=== PATIENT | female | born 1985 | race African-American/Black ===

== ENCOUNTER 2017-01-25 05:26 | Emergency (ER) | payer OTHER ==
[~2017-01-25] VITALS: Ht 154.9 cm; Wt 146.2 kg
[~2017-01-25 05:26] MED LIST: AMOXICILLIN500 MG PO; LIDOCAINE22 EX; NAPROSYN500 MG PO; NO HOME MEDS; NO MEDS; ROBITUSSIN200 MG/10 PO; SOME ANTIBIOTIC; ULTRAM50 M1 PO; ULTRAM50 MG OR
[2017-01-25] MEDS ORDERED: AMOXICILLIN500 MG PO (06:14)
[2017-01-25 06:25] VITALS: BP 132/70
== END 2017-01-25 06:28 | disposition home or self-care (01) | DRG 153 ==
LOC: ED 05:26
DX: J02.0 Streptococcal pharyngitis (principal); F17.210 Nicotine dependence, cigarettes, uncomplicated

== ENCOUNTER 2018-05-11 06:20 | Emergency (ER) | payer OTHER ==
[~2018-05-11] VITALS: Ht 154.9 cm; Wt 146.4 kg
[2018-05-11 07:50] LABS: URINE BILIRUBIN - DIPSTICK NEGATIVE (NEGATIVE); URINE BLOOD DIPSTICK NEGATIVE (NEGATIVE); URINE COLOR YELLOW; URINE GLUCOSE - DIPSTICK NEGATIVE (NEGATIVE); URINE KETONE NEGATIVE (NEGATIVE); URINE LEUK ESTERASE NEGATIVE (NEGATIVE); URINE NITRITE - DIPSTICK NEGATIVE (Negative); URINE PROTEIN - DIPSTICK NEGATIVE (NEG-TRACE); URINE SPECIFIC GRAVITY >=1.030; URINE UROBILINOGEN - DIPSTICK 0.2 E.U./dL (0.2)
[2018-05-11 07:51] LABS: URINE CLARITY CLEAR
[2018-05-11 07:52] LABS: HCG SERUM/URINE (NEG/POS) NEGATIVE (NEGATIVE)
[2018-05-11 07:54] LABS: HEMOGLOBIN 10.9 g/dl (12.0-16.0); IMMATURE GRANULOCYTES 0.8 % (0.0-5.0); MEAN CELL VOLUME 83.5 fL CALC (80.0-100.0); MEAN CORPUSCULAR HGB 24.6 pG CALC (26.0-32.0); MEAN CORPUSCULAR HGB CONC 29.5 g/L CALC (32.0-36.0); NEUT# 3.53 thou/uL (2.00-7.15); RED BLOOD COUNT 4.43 mill/uL (4.20-5.60)
[2018-05-11 08:13] LABS: ALBUMIN 3.8 g/dL (3.2-5.0); ALKALINE PHOSPHATASE 93 u/l (38-126); ANION GAP 11 (6-22 (CALC)); BILIRUBIN, TOTAL 0.2 mg/dL (0.0-1.4); BUN 12 mg/dL (7-17); BUN/CREATININE RATIO 19 (12-20 (CALC)); CARBON DIOXIDE 29 mmol/l (22-30); CHLORIDE 107 mmol/l (95-108); CREATININE 0.6 mg/dL (0.5-1.0); GFR > 60 ML/MIN (>=60 (CALC)); GFR FOR AFR.AMER. > 60 ML/MIN (>=60 (CALC)); POTASSIUM 4.2 mmol/l (3.5-5.1); SGOT/AST 19 u/l (14-36); SODIUM 142 mmol/l (137-146); TOTAL PROTEIN 7.1 g/dL (6.3-8.2)
[2018-05-11] MEDS ORDERED: COMBIVIR 1501 COMBO PO ×2 (08:13→08:33)
[2018-05-11] MEDS ORDERED: CRIXIVAN400 MG PO ×2 (08:13→08:33)
[2018-05-11 08:42] VITALS: BP 129/75
== END 2018-05-11 08:50 | disposition home or self-care (01) | DRG 605 ==
LOC: ED 06:20
PROVIDERS: Emergency Medicine
DX: S61.031A Puncture wound without foreign body of right thumb without damage to nail, initial encounter (principal); Y35.491A Legal intervention involving other sharp objects, law enforcement official injured, initial encounter; Y93.89 Activity, other specified; Y92.89 Other specified places as the place of occurrence of the external cause; Y99.0 Civilian activity done for income or pay

== ENCOUNTER 2019-04-02 08:51 | Emergency (ER) | payer BC ==
[~2019-04-02] VITALS: Ht 154.9 cm; Wt 147.8 kg
[~2019-04-02 08:51] MED LIST changes: +COMBIVIR 1501 COMBO PO; +CRIXIVAN400 MG PO
[2019-04-02] MEDS ORDERED: ZPAK PO (09:09)
[2019-04-02 09:35] VITALS: BP 160/97
== END 2019-04-02 09:42 | disposition home or self-care (01) | DRG 153 ==
LOC: ED 08:51
DX: J06.9 Acute upper respiratory infection, unspecified (principal); F17.210 Nicotine dependence, cigarettes, uncomplicated

== ENCOUNTER 2019-09-19 | Emergency (ER) | payer BC ==
[~2019-09-19] MED LIST changes: +ZPAK PO
[2019-09-19] MEDS ORDERED: ZPAK PO (08:29)
== END 2019-09-19 08:45 | disposition home or self-care (01) | DRG 153 ==
DX: J06.9 Acute upper respiratory infection, unspecified (principal); F17.210 Nicotine dependence, cigarettes, uncomplicated

== ENCOUNTER 2019-12-28 08:42 | Emergency (ER) | payer BC ==
[2019-12-28 09:05] VITALS: BP 177/90
[2019-12-28] MEDS ORDERED: COMBIVIR 1501 COMBO PO ×2 (12:46)
[2019-12-28] MEDS ORDERED: ISENTRESS400 MG PO ×2 (12:46)
[2019-12-28] MEDS ORDERED: ONDANSETRON4 MG PO ×2 (12:48)
== END 2019-12-28 09:28 | disposition left against medical advice (07) | DRG 951 ==
LOC: ED 08:42 → LWOBS 09:22
DX: Z91.19 Patient's noncompliance with other medical treatment and regimen (principal)

== ENCOUNTER 2019-12-28 10:19 | Emergency (ER) | payer OTHER, BC ==
[2019-12-28 11:02] LABS: HEMATOCRIT 35.7 % (37.0-47.0); HEMOGLOBIN 10.5 g/dl (12.0-16.0); IMMATURE GRANULOCYTES 0.5 % (0.0-5.0); MEAN CELL VOLUME 78.5 fL CALC (80.0-100.0); MEAN CORPUSCULAR HGB 23.1 pG CALC (26.0-32.0); MEAN CORPUSCULAR HGB CONC 29.4 g/dL CAL (32.0-36.0); NEUT# 5.03 thou/uL (2.00-7.15); RED BLOOD COUNT 4.55 mill/uL (4.20-5.60); RED CELL DISTRI WIDTH 18.5 % (11.5-15.5)
[2019-12-28 11:26] LABS: ALBUMIN 3.9 g/dL (3.2-5.0); ALKALINE PHOSPHATASE 69 u/l (38-126); ANION GAP 10 (6-22 (CALC)); BILIRUBIN, TOTAL 0.3 mg/dL (0.0-1.4); BUN 11 mg/dL (7-17); BUN/CREATININE RATIO 20 (12-20 (CALC)); CARBON DIOXIDE 24 mmol/l (22-30); CHLORIDE 105 mmol/l (95-108); CPK 91 u/l (30-165); CREATININE 0.5 mg/dL (0.5-1.0); GFR > 60 ML/MIN (>=60 (CALC)); GFR FOR AFR.AMER. > 60 ML/MIN (>=60 (CALC)); POTASSIUM 3.6 mmol/l (3.5-5.1); SGOT/AST 20 u/l (14-36); SODIUM 135 mmol/l (137-146); TOTAL PROTEIN 7.2 g/dL (6.3-8.2)
[2019-12-28] MEDS ORDERED: COMBIVIR 1501 COMBO PO ×2 (12:46)
[2019-12-28] MEDS ORDERED: ISENTRESS400 MG PO ×2 (12:46)
[2019-12-28] MEDS ORDERED: ONDANSETRON4 MG PO ×2 (12:48)
[2019-12-28 13:18] VITALS: BP 173/88
== END 2019-12-28 13:18 | disposition home or self-care (01) | DRG 951 ==
LOC: ED 10:19
PROVIDERS: Family Medicine
DX: Z77.21 Contact with and (suspected) exposure to potentially hazardous body fluids (principal); F17.210 Nicotine dependence, cigarettes, uncomplicated; Y93.F9 Activity, other caregiving; Y92.149 Unspecified place in prison as the place of occurrence of the external cause; Y99.0 Civilian activity done for income or pay

== ENCOUNTER 2020-02-22 18:19 | Emergency (ER) | payer BC ==
[~2020-02-22] VITALS: Ht 154.9 cm; Wt 154.0 kg
[~2020-02-22 18:19] MED LIST changes: +ISENTRESS400 MG PO; +ONDANSETRON4 MG PO
[2020-02-22 20:19] LABS: HEMATOCRIT 40.1 % (37.0-47.0); HEMOGLOBIN 11.4 g/dl (12.0-16.0); IMMATURE GRANULOCYTES 0.6 % (0.0-5.0); MEAN CELL VOLUME 80.2 fL CALC (80.0-100.0); MEAN CORPUSCULAR HGB 22.8 pG CALC (26.0-32.0); MEAN CORPUSCULAR HGB CONC 28.4 g/dL CAL (32.0-36.0); RED CELL DISTRI WIDTH 18.6 % (11.5-15.5)
[2020-02-22 20:21] LABS: URINE BILIRUBIN - DIPSTICK NEGATIVE (NEGATIVE); URINE BLOOD DIPSTICK NEGATIVE (NEGATIVE); URINE COLOR YELLOW; URINE GLUCOSE - DIPSTICK NEGATIVE (NEGATIVE); URINE KETONE NEGATIVE (NEGATIVE); URINE LEUK ESTERASE NEGATIVE (NEGATIVE); URINE NITRITE - DIPSTICK NEGATIVE (Negative); URINE PH 8.5 (4.5-8.0); URINE PROTEIN - DIPSTICK NEGATIVE (NEG-TRACE)
[2020-02-22 20:32] LABS: ALBUMIN 4.2 g/dL (3.2-5.0); ALKALINE PHOSPHATASE 83 u/l (38-126); AMYLASE 54 u/l (30-110); ANION GAP 9 (6-22 (CALC)); BILIRUBIN, TOTAL 0.3 mg/dL (0.0-1.4); BUN 11 mg/dL (7-17); BUN/CREATININE RATIO 17 (12-20 (CALC)); CHLORIDE 101 mmol/l (95-108); CREATININE 0.6 mg/dL (0.5-1.0); GFR > 60 ML/MIN (>=60 (CALC)); GFR FOR AFR.AMER. > 60 ML/MIN (>=60 (CALC)); LIPASE 54 u/l (23-300); POTASSIUM 3.8 mmol/l (3.5-5.1); SGOT/AST 23 u/l (14-36); SODIUM 135 mmol/l (137-146); TOTAL PROTEIN 7.7 g/dL (6.3-8.2)
[2020-02-22 20:34] LABS: CARBON DIOXIDE 29 mmol/l (22-30)
[2020-02-22 23:51] VITALS: BP 158/79
== END 2020-02-23 00:42 | disposition home or self-care (01) | DRG 392 ==
LOC: ED 18:19
PROVIDERS: Emergency Medicine
DX: R10.84 Generalized abdominal pain (principal); I10 Essential (primary) hypertension; F17.200 Nicotine dependence, unspecified, uncomplicated; Z91.14 Patient's other noncompliance with medication regimen

== ENCOUNTER 2021-02-28 23:42 | Emergency (ER) | payer SELFPAY ==
[2021-03-01 00:45] VITALS: BP 201/116
== END 2021-03-01 00:50 | disposition home or self-care (01) | DRG 603 ==
LOC: ED 23:42
PROC: 0H97XZZ Drainage of Abdomen Skin, External Approach (ICD-10-PCS; principal; 2021-03-01)
DX: L02.211 Cutaneous abscess of abdominal wall (principal); F17.210 Nicotine dependence, cigarettes, uncomplicated

== ENCOUNTER 2021-03-03 22:12 | Emergency (ER) | payer SELFPAY ==
[2021-03-03 23:39] VITALS: BP 174/89
== END 2021-03-03 23:43 | disposition home or self-care (01) | DRG 951 ==
LOC: ED 22:12
DX: Z48.01 Encounter for change or removal of surgical wound dressing (principal); F17.210 Nicotine dependence, cigarettes, uncomplicated

== ENCOUNTER 2023-01-25 17:57 | Emergency (ER) | payer SELFPAY ==
[2023-01-25] VITALS (11 sets, daily range): BP systolic 158–190; BP diastolic 85–103
[~2023-01-25] VITALS: Ht 154.9 cm; Wt 142.6 kg
[2023-01-25 18:32] LABS: BASO% 0.3 % (0-3); EOS% 2.6 % (0-8); HEMATOCRIT 34.9 % (37.0-47.0); HEMOGLOBIN 9.9 g/dl (12.0-16.0); IMMATURE GRANULOCYTES 0.2 % (0.0-5.0); LYMPH% 33.8 % (15-41); MEAN CORPUSCULAR HGB 21.6 pG CALC (26.0-32.0); MEAN CORPUSCULAR HGB CONC 28.4 g/dL CAL (32.0-36.0); MONO% 7.8 % (2-13); NEUT# 5.03 thou/uL (2.00-7.15); NEUT% 55.3 % (42-76); RED BLOOD COUNT 4.59 mill/uL (4.20-5.60); RED CELL DISTRI WIDTH 18.4 % (11.5-15.5)
[2023-01-25 18:39] LABS: ALKALINE PHOSPHATASE 75 u/l (38-126); ANION GAP 11 (6-22 (CALC)); BILIRUBIN, TOTAL 0.3 mg/dL (0.02-1.3); BUN 10 mg/dL (7-17); BUN/CREATININE RATIO 13 (12-20 (CALC)); CARBON DIOXIDE 24 mmol/l (22-30); CHLORIDE 108 mmol/l (95-108); CREATININE 0.8 mg/dL (0.5-1.0); GFR FOR AFR.AMER. > 60 ML/MIN (>=60 (CALC)); GFR OTHER RACES > 60 ML/MIN (>=60 (CALC)); POTASSIUM 3.8 mmol/l (3.5-5.1); SGOT/AST 23 u/l (14-36); SODIUM 138 mmol/l (137-146); TOTAL PROTEIN 7.9 g/dL (6.3-8.2)
== END 2023-01-25 21:54 | disposition home or self-care (01) | DRG 305 ==
LOC: ED 17:57
PROVIDERS: Family Medicine
DX: I10 Essential (primary) hypertension (principal); T46.5X6A Underdosing of other antihypertensive drugs, initial encounter; Z91.128 Patient's intentional underdosing of medication regimen for other reason; F17.200 Nicotine dependence, unspecified, uncomplicated